=== PATIENT | male | born 1985 | race Caucasian/White ===

== ENCOUNTER 2016-09-14 13:16 | Emergency (ER) | payer MEDICAID ==
--- NOTE | 2016-09-14 13:26 | CPEKG ---
Heart Rate: 73 RR Interval: 822 P-R Interval: 156 QRSD Interval: 94 QT Interval: 372 QTC Interval: 410 P Weldon: 4 QRS Weldon: 38 T Wave Weldon: 8 EKG Severity - NORMAL ECG - EKG Impression: SINUS RHYTHM Electronically Signed By: Mele Fagan 14-Sep-2016 13:41:44
[2016-09-14 13:31] VITALS: TEMP 98.4; O2SAT 96
[2016-09-14] MEDS ORDERED: KETOROLAC 30 MG/1 ML SDV IVP ONE (13:38)
--- NOTE | 2016-09-14 13:41 | EDPHY ---
H & P Time Seen by Provider: 09/14/16 13:27 HPI/ROS: CHIEF COMPLAINT: Right-sided posterior chest pain HISTORY OF PRESENT ILLNESS: Patient is a history of pericarditis. This feels different. He was working today when he started feeling short of breath around 10:15 a.m.. He then developed pain in the right posterior chest and back around 11:00 a.m.. Worse with deep breath. Not change with exertion or position. A little bit worse with moving around. Did not have radiation of the pain or urinary symptoms or fever or chills or recent injury fall or trauma. Presents by EMS. Currently is better than previous but not completely gone. REVIEW OF SYSTEMS: Eye: no change in vision ENT: no sore throat Cardiac: HPI Pulmonary: HPI Abdomen: no vomiting, diarrhea, abdominal pain Musculoskeletal: No neck pain Skin: no rash Neuro: no headache Constitutional: no fever : no urinary symptoms no dysuria or hematuria A comprehensive 10 point review of systems is otherwise negative aside from elements mentioned in the history of present illness. PAST MEDICAL HISTORY: Cholecystectomy and pericarditis Social history: Nonsmoker. Family history negative for venous thromboembolism , cardia, aortic dissection. No recent travel or immobilization. General Appearance: Alert and conversant, cooperative. Eyes: No scleral icterus. ENT, Mouth: Normal mucous membranes. Respiratory: Breath sounds equal, no wheezing rales or rhonchi, he is splinting. Cardiovascular: Regular rate and rhythm. Gastrointestinal: Abdomen is soft and non tender. Nontender in the right upper quadrant. Neurological: Alert and oriented x3. Normally conversant. Face symmetric, normal movement and sensation in all extremities. Skin: Warm and dry, no rashes. Musculoskeletal: No peripheral edema and no joint swelling. No calf tenderness. Does have some right flank tenderness to palpation. Psychiatric: Not agitated. Emergency Department course/MDM: EKG reviewed and is normal. I think cardiac problem is very unlikely. Toradol 15 mg IV. Differential extensive and considered including but not limited to renal colic, musculoskeletal, pulmonary embolus, pneumothorax. Chest x-ray, D-dimer. 1515: Pretest probability low for pulmonary embolism, negative D-dimer. Urine dip negative for blood, I think renal colic is unlikely. Most likely muscular pleurisy. Symptomatic treatment and discharge. Smoking Status: Never smoked Constitutional: Initial Vital Signs Temperature (C) 36.9 C 09/14/16 13:16 Heart Rate 80 09/14/16 13:16 Respiratory Rate 14 09/14/16 13:16 Blood Pressure 176/104 H 09/14/16 13:16 O2 Sat (%) 96 09/14/16 13:16 O2 Delivery Mode Room Air Allergies/Adverse Reactions: promethazine [From Phenergan] Allergy (Verified 09/14/16 13:31) Home Medications: Medication Instructions Recorded NK [No Known Home Meds] 09/14/16 Medical Decision Making - Diagnostics EKG Interpretation: 12-lead EKG interpreted by me; official reading is in trace master. My interpretation is sinus rhythm, rate 73, no ischemic changes. Imaging Results: Imaging Impressions Chest X-Ray 09/14/16 13:38 Impression: Normal chest x-ray. Differential Diagnosis: Differential diagnosis considered for chest pain including but not limited to myocardial ischemia, aortic dissection, pericarditis, pulmonary embolus, chest wall pain, pleural inflammation and pulmonary infectious causes. - Data Points Laboratory Results: Laboratory Results 09/14/16 13:01 09/14/16 13:01 09/14/16 09/14/16 09/14/16 13:01 13:01 13:01 WBC 8.86 10^3/uL 10^3/uL (3.80-9.50) RBC 5.62 10^6/uL 10^6/uL (4.40-6.38) Hgb 17.3 g/dL g/dL (13.7-17.5) Hct 48.0 % % (40.0-51.0) MCV 85.4 fL fL (81.5-99.8) MCH 30.8 pg pg (27.9-34.1) MCHC 36.0 g/dL g/dL (32.4-36.7) RDW 13.0 % % (11.5-15.2) Plt Count 193 10^3/uL 10^3/uL (150-400) MPV 11.0 fL fL (8.7-11.7) Neut % (Auto) 61.6 % % (39.3-74.2) Lymph % (Auto) 30.1 % % (15.0-45.0) [place] % (Auto) 6.7 % % (4.5-13.0) Eos % (Auto) 0.8 % % (0.6-7.6) Baso % (Auto) 0.3 % % (0.3-1.7) Nucleat RBC Rel Count 0.0 % % (0.0-0.2) Absolute Neuts (auto) 5.46 10^3/uL 10^3/uL (1.70-6.50) Absolute Lymphs (auto) 2.67 10^3/uL 10^3/uL (1.00-3.00) Absolute Monos (auto) 0.59 10^3/uL 10^3/uL (0.30-0.80) Absolute Eos (auto) 0.07 10^3/uL 10^3/uL (0.03-0.40) Absolute Basos (auto) 0.03 10^3/uL 10^3/uL (0.02-0.10) Absolute Nucleated RBC 0.00 10^3/uL 10^3/uL (0-0.01) Immature Gran % 0.5 % % (0.0-1.1) Immature Gran # 0.04 10^3/uL 10^3/uL (0.00-0.10) D-Dimer < 0.27 ug/mLFEU ug/mLFEU (0.00-0.50) Sodium 139 mEq/L mEq/L (134-144) Potassium 4.2 mEq/L mEq/L (3.5-5.2) Chloride 103 mEq/L mEq/L (97-110) Carbon Dioxide 19 mEq/l L mEq/l (22-31) Anion Gap 17 mEq/L H mEq/L (8-16) BUN 18 mg/dL mg/dL (7-23) Creatinine 1.0 mg/dL mg/dL (0.7-1.3) Estimated GFR > 60 Glucose 78 mg/dL mg/dL (70-100) Calcium 10.2 mg/dL mg/dL (8.5-10.4) Medications Given: Discontinued Medications Ketorolac Tromethamine (Toradol) 15 mg IVP EDNOW ONE Stop: 09/14/16 13:39 Last Admin: 09/14/16 13:45 Dose: 15 mg Departure - Departure Disposition: Home, Routine, Self-Care Clinical Impression: Chest pain Condition: Good Instructions: Chest Pain (ED), Pleurisy (ED) Referrals: Patient,NotPresent [Unknown] - As per Instructions
[2016-09-14 13:47] LABS: % IMMATURE GRANULYOCYTES 0.5 % (0.0-1.1); ABSOLUTE IMMATURE GRANULOCYTES 0.04 10^3/uL (0.00-0.10); ADD DIFF? NO; ADD MORPH? NO; ADD SCAN? NO; ATYPICAL LYMPHOCYTE FLAG 10 (0-99); FRAGMENT RBC FLAG 0 (0-99); HEMOGLOBIN 17.3 g/dL (13.7-17.5); LEFT SHIFT FLG 0 (0-99); LIPEMIA HEMOLYSIS FLAG 90 (0-99); MEAN CELL HEMOGLOBIN 30.8 pg (27.9-34.1); MEAN CELL VOLUME 85.4 fL (81.5-99.8); PLATELET CLUMPS FLAG 0 (0-99); PLATELET COUNT 193 10^3/uL (150-400); RED BLOOD CELL COUNT 5.62 10^6/uL (4.40-6.38)
[2016-09-14 13:56] LABS: ANION GAP 17 mEq/L (8-16); CALCIUM 10.2 mg/dL (8.5-10.4); CARBON DIOXIDE 19 mEq/l (22-31); CHLORIDE 103 mEq/L (97-110); GLOMERULAR FILTRATION RATE > 60; GLUCOSE 78 mg/dL (70-100); POTASSIUM 4.2 mEq/L (3.5-5.2); SODIUM 139 mEq/L (134-144)
[2016-09-14 15:26] VITALS: BP 134/85; PULSE 74; RESP 18
== END 2016-09-14 15:24 | disposition home or self-care (01) ==
DX: R07.9 Chest pain, unspecified (principal)
CPT/HCPCS: 96374; J1885